=== PATIENT | male | born 2000 | race Two or more races ===

== ENCOUNTER 2023-08-15 21:31 | Emergency (ER) | payer OTHER ==
[~2023-08-15] VITALS: Ht 160 cm; Wt 59.0 kg
[2023-08-15 22:00] VITALS: TEMP 97.8
[2023-08-15] MEDS ORDERED: ONDANSETRON HCL/PF 4 MG/2 ML VIAL ONE (22:28)
[2023-08-15] MEDS: IV NS 0.9% 1,000 ML BAG IV ONE (22:35)
[2023-08-15] MEDS: ONDANSETRON HCL/PF 4 MG/2 ML VIAL IVP ONE (22:38)
[2023-08-15 23:01] LABS: BASOPHILS % (AUTO) 0.4 % (0.0-2.0); EOSINOPHILS # (AUTO) 0.1 K/uL (0.0-0.7); EOSINOPHILS % (AUTO) 0.9 % (0.0-6.0); HEMATOCRIT 46 % (39-51); HEMOGLOBIN 16.5 g/dL (13.5-17.5); LYMPHOCYTES # (AUTO) 2.7 K/uL (0.8-4.8); LYMPHOCYTES % (AUTO) 31.5 % (20.0-44.0); MEAN CORPUSCULAR HEMOGLOBIN 32 PG (26.0-33.0); MEAN CORPUSCULAR HGB CONC 36 g/dl (31.0-36.0); MEAN CORPUSCULAR VOLUME 90 fL (80-96); MONOCYTES # (AUTO) 0.6 K/uL (0.1-1.30); MONOCYTES % (AUTO) 6.9 % (2.0-12.0); NEUTROPHILS # (AUTO) 5.2 K/uL (1.8-8.9); NEUTROPHILS % (AUTO) 60.3 % (43.0-81.0); PLATELET COUNT (AUTO) 134 K/uL (150-450); RED CELL DISTRIBUTION WIDTH 13.2 % (11.5-15.0); WHITE BLOOD COUNT (AUTO) 8.7 K/uL (4.3-11.0)
[2023-08-15 23:18] LABS: ALBUMIN 4.1 g/dL (3.4-5.0); BILIRUBIN,DIRECT 0.1 mg/dL (0.0-0.2); BILIRUBIN,TOTAL 0.3 mg/dL (0.2-1.0); CREATININE 0.9 mg/dL (0.6-1.3); POTASSIUM 3.8 mmol/L (3.5-5.1); TOTAL PROTEIN, SERUM 7.5 g/dL (6.4-8.2)
[2023-08-16 00:27] VITALS: BP 110/65; O2SAT 100
== END 2023-08-16 00:28 | disposition home or self-care (01) ==
LOC: ER 21:34
DX: R42 Dizziness and giddiness (principal); J02.9 Acute pharyngitis, unspecified
CPT/HCPCS: 99283; 96374; 96361; 85025; 80048; 83690; 80076; 36415; J2405; J7030